=== PATIENT | male | born 1955 | race Caucasian/White ===

== ENCOUNTER 2018-02-06 08:00 | Outpatient (CLI) | payer OTHER | END 2018-03-03 | LOC: M LAB 03-03 08:00 | DX: Z01.818 Encounter for other preprocedural examination (principal); M17.11 Unilateral primary osteoarthritis, right knee | CPT/HCPCS: 71046 ==

== ENCOUNTER → 2018-02-06 | Outpatient (CLI) | payer OTHER ==
[2018-02-06 13:02] LABS: HEMATOCRIT 44.5 % (42.0-52.0); MEAN CORPUSCULAR HEMOGLOBIN 31.7 pg (27.0-33.0); MEAN CORPUSCULAR HGB CONC 33.7 g/dl (32.0-36.5); MEAN CORPUSCULAR VOLUME 94.1 fl (80.0-96.0); PLATELET COUNT, AUTOMATED 248 10^3/uL (150-450); RED BLOOD COUNT 4.73 10^6/uL (4.30-6.10); RED CELL DISTRIBUTION WIDTH 12.6 % (11.5-14.5)
[2018-02-06 13:34] LABS: INR 0.92; PROTHROMBIN TIME 12.5 SECONDS (12.1-14.4)
[2018-02-06 13:47] LABS: ALBUMIN 3.8 GM/DL (3.2-5.2); ALBUMIN/GLOBULIN RATIO 1.15 (1.00-1.93); ALKALINE PHOSPHATASE 114 U/L (45-117); ALT/SGPT 31 U/L (12-78); ANION GAP 7 MEQ/L (8-16); AST/SGOT 19 U/L (7-37); BILIRUBIN,TOTAL 0.3 MG/DL (0.2-1.0); BLOOD UREA NITROGEN 13 MG/DL (7-18); CALCIUM LEVEL 8.8 MG/DL (8.8-10.2); CARBON DIOXIDE LEVEL 29 MEQ/L (21-32); CHLORIDE LEVEL 102 MEQ/L (98-107); CREATININE FOR GFR 0.86 MG/DL (0.70-1.30); GLOMERULAR FILTRATION RATE > 60.0 (>49); GLUCOSE, FASTING 120 MG/DL (70-100); POTASSIUM SERUM 3.9 MEQ/L (3.5-5.1); SODIUM LEVEL 138 MEQ/L (136-145); TOTAL PROTEIN 7.1 GM/DL (6.4-8.2)
[2018-02-06 14:35] LABS: ERYTHROCYTE SEDIMENTATION RATE 6 mm/hr (0-20)
== END ==
LOC: M LAB 11:17
DX: Z01.818 Encounter for other preprocedural examination (principal); M17.11 Unilateral primary osteoarthritis, right knee; R94.31 Abnormal electrocardiogram [ECG] [EKG]
CPT/HCPCS: 93005

== ENCOUNTER 2018-03-03 08:16 | Inpatient (IN) | payer OTHER ==
[~2018-03-03 08:16] MED LIST: ACETAMINOPHEN 500 MG TAB PO; LIDOCAINE 1% MDV 20ML VIAL SQ
[2018-03-03] MEDS: PRAVASTATIN 20 MG TAB PO ×2 (09:00→16:27)
[2018-03-03] MEDS: ACETAMINOPHEN 500 MG TAB PO (09:03)
[2018-03-03] MEDS: LR 1,000 ML IV ×4 (09:04→19:56)
[2018-03-03] MEDS ORDERED: fentaNYL 100 MCG/2 ML INJECTION (J3010) As Ordered (09:32)
[2018-03-03] MEDS ORDERED: MIDAZOLAM INJ 2 MG/2 ML VIAL (J2250) As Ordered ×2 (09:32→09:57)
[2018-03-03] MEDS: MIDAZOLAM INJ 2 MG/2 ML VIAL (J2250) IV (09:41)
[2018-03-03] MEDS: fentaNYL 100 MCG/2 ML INJECTION (J3010) IV (09:41)
[2018-03-03] MEDS: ceFAZolin 1GM INJ (J0690 PER 500MG) As Ordered (09:55)
[2018-03-03] MEDS: TRANEXAMIC ACID 100 MG/ML 10ML VIAL As Ordered (09:55)
[2018-03-03] MEDS: BUPIVACAINE HCL 0.25% 30 ML VIAL As Ordered (09:55)
[2018-03-03] MEDS: BUPIVACAINE LIPOSOME/PF 1.3% 20ML VIAL (13.3MG/ML)(EXPAREL)(C9290 PER1MG) As Ordered (09:56)
[2018-03-03] MEDS ORDERED: PROPOFOL 200 MG/20 ML VIAL As Ordered ×2 (09:57)
[2018-03-03] MEDS ORDERED: LIDOCAINE 2% INJ 100 MG/5 ML SDV (FOR ANES.) As Ordered (09:57)
[2018-03-03] MEDS ORDERED: BUPIVACAINE/DEXTROSE 0.75% 2 ML AMP As Ordered (10:00)
[2018-03-03] MEDS ORDERED: ROPIvacaine 0.5% 30 ML INJECTION (J2795 PER 1MG) (11:20)
[2018-03-03] MEDS ORDERED: dexameTHASONE 10 MG/1 ML VIAL PRES.FREE (J1100) (11:20)
[2018-03-03] MEDS: EPINEPHrine INJ 1 MG/ML 1ML AMP As Ordered (11:22)
[2018-03-03] MEDS ORDERED: ePHEDrine SULFATE 25 MG/5 ML(5MG/ML) SYRINGE As Ordered (11:33)
[2018-03-03] MEDS ORDERED: MORPHINE 1MG/ML IN 0.9% NACL 100ML IV BAG As Ordered (12:38)
[2018-03-03] MEDS: MORPHINE 1MG/ML IN 0.9% NACL 100ML IV BAG IV (13:27)
[2018-03-03] MEDS ORDERED: NALBUPHINE HCL 10 MG/ML AMP (J2300) IV (13:30)
[2018-03-03] MEDS ORDERED: diphenhydrAMINE INJ 50MG/ML VIAL (J1200) IV (13:30)
[2018-03-03] MEDS ORDERED: fentaNYL 100 MCG/2 ML INJECTION (J3010) IV (13:30)
[2018-03-03] MEDS ORDERED: EPIDURAL/PCA KEYS XX (13:30)
[2018-03-03] MEDS ORDERED: ONDANSETRON 4MG/2ML VIAL (J2405) IV ×2 (13:30)
[2018-03-03] MEDS ORDERED: ACETAMINOPHEN TAB 650MG DOSE (2X325MG) PO (13:30)
[2018-03-03] MEDS ORDERED: PERCOCET 5MG/325MG TAB PO (13:30)
[2018-03-03] MEDS ORDERED: NALOXONE INJ 0.4 MG/1 ML VIAL (J2310) IV (13:30)
[2018-03-03] MEDS ORDERED: FLEET ENEMA PR (13:30)
[2018-03-03] MEDS ORDERED: ASPIRIN 81 MG ENTERIC TAB PO (21:00)
[2018-03-03] MEDS: CALCIUM CARBONATE 500 MG CHEW U/D PO (21:56)
[2018-03-04] MEDS ORDERED: ONDANSETRON 4 MG TAB (S0181) PO (06:45)
[2018-03-04] MEDS ORDERED: PERCOCET 5MG/325MG TAB PO (06:45)
[2018-03-04 07:47] LABS: HEMATOCRIT 37.2 % (42.0-52.0); HEMOGLOBIN 12.8 g/dl (13.5-17.5); MEAN CORPUSCULAR HEMOGLOBIN 31.7 pg (27.0-33.0); MEAN CORPUSCULAR HGB CONC 34.4 g/dl (32.0-36.5); MEAN CORPUSCULAR VOLUME 92.1 fl (80.0-96.0); PLATELET COUNT, AUTOMATED 210 10^3/uL (150-450); RED BLOOD COUNT 4.04 10^6/uL (4.30-6.10); RED CELL DISTRIBUTION WIDTH 12.6 % (11.5-14.5); WHITE BLOOD COUNT 13.2 10^3/uL (4.0-10.0)
[2018-03-04 08:17] LABS: ANION GAP 5 MEQ/L (8-16); BLOOD UREA NITROGEN 14 MG/DL (7-18); CALCIUM LEVEL 8.3 MG/DL (8.8-10.2); CARBON DIOXIDE LEVEL 28 MEQ/L (21-32); CHLORIDE LEVEL 102 MEQ/L (98-107); CREATININE FOR GFR 0.88 MG/DL (0.70-1.30); GLOMERULAR FILTRATION RATE > 60.0 (>49); GLUCOSE, FASTING 134 MG/DL (70-100); POTASSIUM SERUM 4.2 MEQ/L (3.5-5.1); SODIUM LEVEL 135 MEQ/L (136-145)
[2018-03-04] MEDS: MOM 30ML SUSPENSION UDC PO (08:44)
[2018-03-04] MEDS: MIRALAX *UNIT DOSE* 17GM PACKET PO (08:44)
[2018-03-04] MEDS: SENOKOT S TAB PO (08:45)
[2018-03-04] MEDS: PRAVASTATIN 20 MG TAB PO (08:45)
[2018-03-04] MEDS: hydroCHLOROthiazide 12.5 MG CAPSULE PO (08:46)
[2018-03-04] MEDS: PERCOCET 5MG/325MG TAB PO (08:48)
[2018-03-04] MEDS ORDERED: RIVAROXABAN 10 MG TAB (XARELTO) PO (18:00)
== END 2018-03-04 11:55 | disposition home or self-care (01) | DRG 302 ==
LOC: M OR 08:16 → M MS5PR 14:15
PROC: 0SRC0J9 Replacement of Right Knee Joint with Synthetic Substitute, Cemented, Open Approach (ICD-10-PCS; principal; 2018-03-03 10:39)
DX: M17.11 Unilateral primary osteoarthritis, right knee (principal); I10 Essential (primary) hypertension; F17.210 Nicotine dependence, cigarettes, uncomplicated; E78.5 Hyperlipidemia, unspecified; Z79.82 Long term (current) use of aspirin; Z79.899 Other long term (current) drug therapy; R26.89 Other abnormalities of gait and mobility; Z85.820 Personal history of malignant melanoma of skin; Z96.649 Presence of unspecified artificial hip joint

== ENCOUNTER → 2019-09-02 | Outpatient (REF) | payer OTHER ==
[~2019-09-02] MED LIST changes: +ACET65TA OR; -ACETAMINOPHEN 500 MG TAB PO; +ASPI81TA26 PO; +ASPI81TA83 OR; +BENI20TA11 OR; +COUM1TAB17 OR; -LIDOCAINE 1% MDV 20ML VIAL SQ; +LOSA100T8 PO; +PERC5TAB12 PO; +PRAV1TAB39 OR; +PRAV40TA2 PO; +PRAVASTATIN PO; +TRAM50TA2 OR; +XARE10TA PO; +ZANTAC OTC PO; +[UNRECOGNIZED DRUG - OTHER] PO
== END ==
LOC: M LAB REF 09-01 17:53
PROVIDERS: ATTEND Dermatology
DX: L57.0 Actinic keratosis (principal)